=== PATIENT | male | born 1950 | race Caucasian/White ===

== ENCOUNTER → 2016-06-15 | Outpatient (CLI) | payer MEDICARE, BC ==
[~2016-06-15] MED LIST: CELEXA 20MG20 MG/TA1 PO; CENTRUM1 TA1 PO; COZAAR100 MG PO; FLONASE0.05 MG/AC NS; NATURAL IRON65 MG PO; TYLENOL 325MG325 MG PO; VITAMIN C100 M2 PO; VITAMIN E100 I3 PO
== END ==
LOC: LAB 10:03
DX: I10 Essential (primary) hypertension (principal); E78.2 Mixed hyperlipidemia; Z12.5 Encounter for screening for malignant neoplasm of prostate; I43 Cardiomyopathy in diseases classified elsewhere; N52.03 Combined arterial insufficiency and corporo-venous occlusive erectile dysfunction; Z12.11 Encounter for screening for malignant neoplasm of colon

== ENCOUNTER → 2017-07-10 | Outpatient (CLI) | payer MEDICARE, BC ==
[2014-12-18 11:40] VITALS: BP 120/72
[2017-07-10 10:37] LABS: EOS # 0.1 (0.04-0.40); HEMATOCRIT 45.8 % (42.0-52.0); HEMOGLOBIN 15.4 g/dL (13.5-18.0); MEAN CELL VOLUME 88 fl (78-100); MEAN CORPUSCULAR HEMOGLOBIN 30 pg (27-31); MEAN CORPUSCULAR HGB CONC 34 g/dL (33-37); MEAN PLATELET VOLUME 9.5 fl (7.4-10.4); MONO # 0.7 (0.20-0.80); NEU # 4.5 (1.40-6.50); PLATELET COUNT 196 K/mm3 (130-400); RED BLOOD COUNT 5.19 M/mm3 (4.20-5.60); WHITE BLOOD COUNT 6.4 K/mm3 (4.8-10.8)
[2017-07-10 10:52] LABS: ALBUMIN 4.1 g/dL (3.5-5.0); BUN/CREATININE RATIO 11.1 (6.0-26.0); CALCIUM 8.9 mg/dL (8.4-10.2); POTASSIUM 4.4 mmol/L (3.6-5.0); TOTAL BILIRUBIN 0.4 mg/dL (0.2-1.3); TOTAL PROTEIN 7.2 g/dL (6.3-8.2)
[2017-07-10 11:44] LABS: ERYTHROCYTE SEDIMENTATION RATE 6 mm/hr (0-20)
[2017-07-10 23:31] LABS: TESTOSTERONE 267 ng/dL (221-716)
== END ==
LOC: LAB 10:14
PROVIDERS: Internal Medicine
DX: I10 Essential (primary) hypertension (principal); Z12.5 Encounter for screening for malignant neoplasm of prostate; Z12.11 Encounter for screening for malignant neoplasm of colon; E78.5 Hyperlipidemia, unspecified; I43 Cardiomyopathy in diseases classified elsewhere; R00.8 Other abnormalities of heart beat; N52.9 Male erectile dysfunction, unspecified; Z88.8 Allergy status to other drugs, medicaments and biological substances

== ENCOUNTER → 2017-11-22 | Outpatient (CLI) | payer MEDICARE, BC ==
[2014-12-18 11:40] VITALS: BP 120/72
== END ==
LOC: LAB 15:46
DX: Z12.11 Encounter for screening for malignant neoplasm of colon (principal); I10 Essential (primary) hypertension; E78.5 Hyperlipidemia, unspecified; I43 Cardiomyopathy in diseases classified elsewhere; R00.8 Other abnormalities of heart beat

== ENCOUNTER → 2018-07-05 | Outpatient (CLI) | payer MEDICARE, BC ==
[2014-12-18 11:40] VITALS: BP 120/72
[2018-07-05 09:33] LABS: EOS # 0.1 (0.04-0.40); EOS % 1.9 % (0.0-4.0); HEMATOCRIT 48.1 % (42.0-52.0); HEMOGLOBIN 16.2 g/dL (13.5-18.0); LYMPH# 1.4 (1.50-4.00); MEAN CELL VOLUME 87 fl (78-100); MEAN CORPUSCULAR HEMOGLOBIN 29 pg (27-31); MEAN CORPUSCULAR HGB CONC 34 g/dL (33-37); MEAN PLATELET VOLUME 9.9 fl (7.4-10.4); MONO # 0.6 (0.20-0.80); NEU # 4.8 (1.40-6.50); PLATELET COUNT 203 K/mm3 (130-400); RED BLOOD COUNT 5.52 M/mm3 (4.20-5.60); RED CELL DISTRIBUTION WIDTH 12.9 % (11.5-14.5); WHITE BLOOD COUNT 6.9 K/mm3 (4.8-10.8)
[2018-07-05 09:34] LABS: ALBUMIN 4.5 g/dL (3.5-5.0); CALCIUM 9.4 mg/dL (8.4-10.2); POTASSIUM 4.6 mmol/L (3.6-5.0); TOTAL BILIRUBIN 0.7 mg/dL (0.2-1.3); TOTAL PROTEIN 7.6 g/dL (6.3-8.2)
[2018-07-05 11:48] LABS: ERYTHROCYTE SEDIMENTATION RATE 4 mm/hr (0-20)
[2018-07-05 23:43] LABS: TESTOSTERONE 343 ng/dL (221-716)
== END ==
LOC: RAD 08:42
PROVIDERS: Internal Medicine
DX: M43.12 Spondylolisthesis, cervical region (principal); M47.812 Spondylosis without myelopathy or radiculopathy, cervical region; Z12.5 Encounter for screening for malignant neoplasm of prostate; Z12.11 Encounter for screening for malignant neoplasm of colon; I42.9 Cardiomyopathy, unspecified; I10 Essential (primary) hypertension; E78.5 Hyperlipidemia, unspecified; N52.9 Male erectile dysfunction, unspecified; Z98.1 Arthrodesis status; M54.12 Radiculopathy, cervical region

== ENCOUNTER → 2018-07-15 | Outpatient (CLI) | payer MEDICARE, BC ==
[2014-12-18 11:40] VITALS: BP 120/72
== END ==
LOC: LAB 14:53 → RAD 14:53
DX: E78.2 Mixed hyperlipidemia (principal); R00.8 Other abnormalities of heart beat; I43 Cardiomyopathy in diseases classified elsewhere; I10 Essential (primary) hypertension; Z12.11 Encounter for screening for malignant neoplasm of colon

== ENCOUNTER → 2020-11-26 | Outpatient (CLI) | payer MEDICARE, BC ==
[2020-11-26 09:48] LABS: BASO # 0.02 (0.02-0.10); EOS # 0.07 (0.04-0.40); EOS % 1.1 % (0.0-4.0); HEMOGLOBIN 15.4 g/dL (13.5-18.0); MEAN CELL VOLUME 87 fl (78-100); MEAN CORPUSCULAR HEMOGLOBIN 30 pg (27-31); MEAN CORPUSCULAR HGB CONC 34 g/dL (33-37); MEAN PLATELET VOLUME 9.9 fl (7.4-10.4); MONO # 0.47 (0.20-0.80); NEU # 4.71 (1.40-6.50); PLATELET COUNT 186 K/mm3 (130-400); RED BLOOD COUNT 5.17 M/mm3 (4.20-5.60); RED CELL DISTRIBUTION WIDTH 12.5 % (11.5-14.5); WHITE BLOOD COUNT 6.4 K/mm3 (4.8-10.8)
[2020-11-26 10:01] LABS: URINE APPEARANCE CLEAR; URINE BILIRUBIN NEGATIVE (NEGATIVE); URINE BLOOD NEGATIVE (NEGATIVE); URINE COLOR YELLOW; URINE GLUCOSE NEGATIVE (NEGATIVE); URINE KETONE NEGATIVE (NEGATIVE); URINE LEUKOCYTE ESTERASE NEGATIVE (NEGATIVE); URINE NITRATE NEGATIVE (NEGATIVE); URINE PROTEIN(semi-quant) NEGATIVE (NEGATIVE); URINE UROBILINOGEN NORMAL (NORMAL)
[2020-11-26 10:04] LABS: ALBUMIN 4.1 g/dL (3.4-4.8); POTASSIUM 4.5 mmol/L (3.5-5.1)
[2020-11-26 10:05] LABS: CALCIUM 9.7 mg/dL (8.3-10.5)
[2020-11-26 10:08] LABS: TOTAL BILIRUBIN 0.7 mg/dL (0.2-1.2)
[2020-11-26 10:58] LABS: ERYTHROCYTE SEDIMENTATION RATE 7 mm/hr (0-20)
[2020-11-26 22:49] LABS: CREATININE OTHER SOURCE 51 mg/dL (())
== END ==
LOC: LAB 09:12
PROVIDERS: Internal Medicine
DX: Z12.11 Encounter for screening for malignant neoplasm of colon (principal); Z12.5 Encounter for screening for malignant neoplasm of prostate; I10 Essential (primary) hypertension; E78.2 Mixed hyperlipidemia; R73.03 Prediabetes; K90.9 Intestinal malabsorption, unspecified

== ENCOUNTER → 2021-03-10 | Outpatient (CLI) | payer MEDICARE, BC ==
[2021-03-10 17:06] LABS: URINE WBC 0 /hpf (0-3)
[2021-03-10 17:07] LABS: URINE APPEARANCE CLEAR; URINE BILIRUBIN NEGATIVE (NEGATIVE); URINE BLOOD NEGATIVE (NEGATIVE); URINE COLOR YELLOW; URINE GLUCOSE NEGATIVE (NEGATIVE); URINE KETONE NEGATIVE (NEGATIVE); URINE LEUKOCYTE ESTERASE NEGATIVE (NEGATIVE); URINE MUCUS PRESENT (NOT PRESENT); URINE NITRATE NEGATIVE (NEGATIVE); URINE PROTEIN(semi-quant) TRACE mg/dL (NEGATIVE); URINE UROBILINOGEN NORMAL (NORMAL)
== END ==
LOC: LAB 15:47
PROVIDERS: Internal Medicine
DX: R35.0 Frequency of micturition (principal)

== ENCOUNTER → 2021-06-13 | Outpatient (CLI) | payer MEDICARE, BC ==
[2021-06-13 14:50] LABS: BASO # 0.01 K/mm3 (0.02-0.10); EOS # 0.16 K/mm3 (0.04-0.40); HEMATOCRIT 44.2 % (42.0-52.0); HEMOGLOBIN 14.8 g/dL (13.5-18.0); LYMPH# 1.32 K/mm3 (1.50-4.00); MEAN CELL VOLUME 91 fl (78-100); MEAN CORPUSCULAR HEMOGLOBIN 31 pg (27-31); MEAN CORPUSCULAR HGB CONC 34 g/dL (33-37); MEAN PLATELET VOLUME 9.6 fl (7.4-10.4); MONO # 0.57 K/mm3 (0.20-0.80); NEU # 5.74 K/mm3 (1.40-6.50); PLATELET COUNT 204 K/mm3 (130-400); RED BLOOD COUNT 4.85 M/mm3 (4.20-5.60); RED CELL DISTRIBUTION WIDTH 12.8 % (11.5-14.5)
[2021-06-13 15:05] LABS: CALCIUM 9.5 mg/dL (8.3-10.5)
[2021-06-13 15:06] LABS: TOTAL PROTEIN 6.9 g/dL (6.2-8.1)
[2021-06-13 15:08] LABS: TOTAL BILIRUBIN 0.6 mg/dL (0.2-1.2)
[2021-06-13 15:12] LABS: MAGNESIUM 1.93 mg/dL (1.60-2.60)
== END ==
LOC: LAB 14:23
PROVIDERS: Internal Medicine
DX: R73.03 Prediabetes (principal); I10 Essential (primary) hypertension; K90.9 Intestinal malabsorption, unspecified; R97.8 Other abnormal tumor markers

== ENCOUNTER → 2022-06-16 | Outpatient (CLI) | payer MEDICARE, BC | LOC: LAB 15:38 | DX: F41.8 Other specified anxiety disorders (principal); I10 Essential (primary) hypertension; E78.2 Mixed hyperlipidemia; G47.33 Obstructive sleep apnea (adult) (pediatric); Z12.5 Encounter for screening for malignant neoplasm of prostate; Z12.11 Encounter for screening for malignant neoplasm of colon; K90.9 Intestinal malabsorption, unspecified; F52.21 Male erectile disorder; R73.03 Prediabetes ==

== ENCOUNTER → 2022-07-17 | Outpatient (CLI) | payer MEDICARE, BC ==
[2022-07-17 15:01] LABS: BASO # 0.01 K/mm3 (0.02-0.10); EOS # 0.05 K/mm3 (0.04-0.40); EOS % 0.7 % (0.0-4.0); HEMATOCRIT 39.8 % (42.0-52.0); HEMOGLOBIN 13.3 g/dL (13.5-18.0); LYMPH# 1.02 K/mm3 (1.50-4.00); MEAN CELL VOLUME 92 fl (78-100); MEAN CORPUSCULAR HEMOGLOBIN 31 pg (27-31); MEAN CORPUSCULAR HGB CONC 33 g/dL (33-37); MEAN PLATELET VOLUME 9.1 fl (7.4-10.4); NEU # 5.33 K/mm3 (1.40-6.50); PLATELET COUNT 184 K/mm3 (130-400); RED BLOOD COUNT 4.34 M/mm3 (4.20-5.60); WHITE BLOOD COUNT 6.9 K/mm3 (4.8-10.8)
[2022-07-17 15:11] LABS: POTASSIUM 4.7 mmol/L (3.5-5.1)
[2022-07-17 15:14] LABS: TOTAL PROTEIN 6.7 g/dL (6.2-8.1)
[2022-07-17 15:15] LABS: TOTAL BILIRUBIN 0.3 mg/dL (0.2-1.2)
[2022-07-17 15:20] LABS: MAGNESIUM 1.77 mg/dL (1.60-2.60)
[2022-07-17 15:24] LABS: URINE APPEARANCE CLEAR; URINE BILIRUBIN NEGATIVE (NEGATIVE); URINE BLOOD NEGATIVE (NEGATIVE); URINE COLOR YELLOW; URINE GLUCOSE NEGATIVE (NEGATIVE); URINE KETONE NEGATIVE (NEGATIVE); URINE LEUKOCYTE ESTERASE 1+ (NEGATIVE); URINE MUCUS PRESENT (NOT PRESENT); URINE NITRATE NEGATIVE (NEGATIVE); URINE PROTEIN(semi-quant) NEGATIVE (NEGATIVE); URINE UROBILINOGEN NORMAL (NORMAL)
[2022-07-17 15:31] LABS: PROTHROMBIN TIME 10.8 SECONDS (9.0-12.0)
== END ==
LOC: LAB 14:39
PROVIDERS: Internal Medicine
DX: Z01.818 Encounter for other preprocedural examination (principal); R06.00 Dyspnea, unspecified

== ENCOUNTER → 2024-01-18 | Outpatient (CLI) | payer MEDICARE, BC ==
[2024-01-18 10:21] LABS: BASO # 0.02 K/mm3 (0.02-0.10); EOS # 0.11 K/mm3 (0.04-0.40); EOS % 1.9 % (0.0-4.0); HEMATOCRIT 44.9 % (42.0-52.0); HEMOGLOBIN 15.2 g/dL (13.5-18.0); LYMPH# 0.97 K/mm3 (1.50-4.00); MEAN CELL VOLUME 89 fl (78-100); MEAN CORPUSCULAR HEMOGLOBIN 30 pg (27-31); MEAN CORPUSCULAR HGB CONC 34 g/dL (33-37); MEAN PLATELET VOLUME 9.3 fl (7.4-10.4); MONO # 0.43 K/mm3 (0.20-0.80); NEU # 4.34 K/mm3 (1.40-6.50); PLATELET COUNT 159 K/mm3 (130-400); RED BLOOD COUNT 5.05 M/mm3 (4.20-5.60); RED CELL DISTRIBUTION WIDTH 12.6 % (11.5-14.5); WHITE BLOOD COUNT 5.9 K/mm3 (4.8-10.8)
[2024-01-18 10:46] LABS: ALBUMIN 4.2 g/dL (3.4-4.8)
[2024-01-18 10:47] LABS: CALCIUM 10.4 mg/dL (8.3-10.5)
[2024-01-18 10:48] LABS: TOTAL PROTEIN 6.9 g/dL (6.2-8.1)
[2024-01-18 10:50] LABS: TOTAL BILIRUBIN 0.6 mg/dL (0.2-1.2)
[2024-01-18 10:54] LABS: MAGNESIUM 1.75 mg/dL (1.60-2.60)
== END ==
LOC: LAB 10:05
PROVIDERS: Internal Medicine
DX: R73.03 Prediabetes (principal); I10 Essential (primary) hypertension; E78.2 Mixed hyperlipidemia; K90.9 Intestinal malabsorption, unspecified; M54.16 Radiculopathy, lumbar region

== ENCOUNTER → 2024-03-28 | Outpatient (CLI) | payer MEDICARE, BC ==
[~2024-03-28] VITALS: Ht 167.6 cm; Wt 82.1 kg
[~2024-03-28] MED LIST changes: +Regadenoson 0.08 MG/ML 5 ML VIAL IV SCH
== END ==
LOC: CARDREHAB 07:46
DX: R06.00 Dyspnea, unspecified (principal)
CPT/HCPCS: A9500; J2785